=== PATIENT | female | born 1945 | race African-American/Black ===

== ENCOUNTER 2019-11-28 15:50 | Emergency (ER) | payer OTHER, MEDICAID ==
[~2019-11-28] VITALS: Ht 167.6 cm; Wt 63.0 kg
[2019-11-28 18:17] VITALS: BP 121/61
== END 2019-11-28 20:05 | disposition left against medical advice (07) ==
LOC: ER 16:19
DX: Z53.21 Procedure and treatment not carried out due to patient leaving prior to being seen by health care provider (principal)
CPT/HCPCS: 93005